=== PATIENT | male | born 1980 | race Hispanic/Latino ===

== ENCOUNTER 2020-07-06 01:45 | Emergency (ER) | payer SELFPAY ==
[2020-07-06] MEDS ORDERED: TETANUS,DIPHTHERIA,PERTUSSIS 1 EA SYG IM ONE (01:50)
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
[2020-07-06] MEDS ORDERED: SODIUM CHLORIDE 0.9% 1000ML 1,000 ML IVS PRN (02:20)
[2020-07-06] MEDS ORDERED: ONDANSETRON INJ 4 MG/2 ML VIAL IV ONE (02:32)
[2020-07-06] MEDS ORDERED: MORPHINE SULFATE INJ 10 MG/ML VIAL IV ONE (02:32)
[2020-07-06] MEDS ORDERED: LIDOCAINE 1% W/ EPINEPHRINE 20 ML VIAL INJ ONE (02:34)
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
[2020-07-06] MEDS ORDERED: NEOMYCIN-BACITRACIN-POLYMYXIN 0.9 GM UD TOP ONE (02:57)
[2020-07-06] MEDS ORDERED: HYDROCOD/APAP 5/325 (ER DISP) #3 TAB PO ONE (03:03)
[2020-07-06 04:25] VITALS: BP 123/82; TEMP 98; O2SAT 97
== END 2020-07-06 03:20 | disposition home or self-care (01) ==
LOC: ER 01:45
DX: S31.114A Laceration without foreign body of abdominal wall, left lower quadrant without penetration into peritoneal cavity, initial encounter (principal); X99.1XXA Assault by knife, initial encounter; Y92.9 Unspecified place or not applicable
CPT/HCPCS: 74177; 80053; 85025; 85610; 85730; 90471; 90715; J2270; J2405; J7030